=== PATIENT | male | born 1965 | race Two or more races ===

== ENCOUNTER 2024-07-25 11:57 | Emergency (ER) | payer BC, MEDICAID ==
[~2024-07-25] VITALS: Ht 175.3 cm; Wt 91.0 kg
[2024-07-25 12:01] VITALS: O2SAT 99
[2024-07-25] MEDS ORDERED: NALO4SPR BOTHNSTRLS (12:26)
[2024-07-25] MEDS: NALOXONE HCL 0.4MG/ML 1ML VIAL IV ONE (13:46)
[2024-07-25 13:57] VITALS: TEMP 36.72516
[2024-07-25 14:39] VITALS: BP 156/81; PULSE 72; RESP 14; O2SAT 96
== END 2024-07-25 19:04 | disposition home or self-care (01) ==
LOC: ER 11:57
DX: T40.601A Poisoning by unspecified narcotics, accidental (unintentional), initial encounter (principal); Z98.890 Other specified postprocedural states; Z94.4 Liver transplant status; Y92.9 Unspecified place or not applicable
CPT/HCPCS: 96374; 99283; J2310; Z7610 ×2